=== PATIENT | female | born 1985 | race Two or more races ===

== ENCOUNTER 2020-12-02 15:58 | Emergency (ER) | payer OTHER ==
[~2020-12-02] VITALS: Ht 154.9 cm; Wt 81.6 kg
[2020-12-02 16:37] LABS: Basophils # (auto) 0.1 10 ^3/uL (0-0.2); Basophils % (auto) 1.8 % (0.0-2.0); Eosinophils # (auto) 0 10 ^3/uL (0-0.8); Eosinophils % (auto) 0.8 % (0.0-7.0); Lymphocytes # (auto) 0.9 10 ^3/uL (0.4-5.4); Monocytes # (auto) 0.6 10 ^3/uL (0-1.3); Red Cell Distribution Width 18.4 % (11.8-14.3)
[2020-12-02 16:39] LABS: Hematocrit 24.2 % (36.0-46.0); Hemoglobin 7.2 g/dL (12.2-16.2); Mean Corpuscular Hemoglobin 18.9 pg (28.0-32.0); Mean Corpuscular Hgb Conc. 29.9 g/dL (32.0-36.0); Mean Corpuscular Volume 63.2 fL (80.0-100.0); Monocytes % (auto) 11.5 % (0.0-12.0); Neutrophils # (auto) 3.6 10 ^3/uL (1.6-8.6); Neutrophils % (auto) 68.9 % (37.0-80.0); Nucleated Red Blood Cells % 0.3 %; Platelet Count (auto) 462 10^3/uL (140-450); Red Blood Cells 3.83 10^6/uL (4.0-5.20); White Blood Cell 5.2 10^3/uL (4.4-10.8)
[2020-12-02 16:56] VITALS: BP 97/63
[2020-12-02 17:01] LABS: Albumin 3.6 g/dL (3.4-5.0); Anion Gap 7 (5-15); Blood Urea Nitrogen 9 mg/dL (7-18); Calcium 8.1 mg/dL (8.5-10.1); Carbon Dioxide 23 mmol/L (21-32); Chloride 108 mmol/L (98-107); Glucose 93 mg/dL (74-106); Potassium 3.4 mmol/L (3.5-5.1); Sodium 138 mmol/L (136-145)
[2020-12-02 17:08] LABS: Alanine Aminotransferase 34 U/L (13-56); Alkaline Phosphatase 60 U/L (45-117); Aspartate Aminotransferase 21 U/L (15-37); BUN/Creatinine Ratio 12.3; Bilirubin, Total 0.3 mg/dL (0.2-1.0); GFR African American 117 mL/min; GFR Non-African American 97 mL/min; Total Protein 8.1 g/dL (6.4-8.2)
[2020-12-02] MEDS ORDERED: POTASSIUM EFFERVESENT TAB 25 MEQ PO ONE (17:45)
[2020-12-02] MEDS ORDERED: medroxyPROGESTERone ACETATE 5 MG TAB PO ONE (17:45)
[2020-12-02] MEDS ORDERED: FERROUS SULFATE 325mg EC TAB PO ONE (17:45)
== END 2020-12-02 17:30 | disposition home or self-care (01) ==
LOC: ER 15:58
DX: R07.89 Other chest pain (principal); D64.9 Anemia, unspecified; E87.6 Hypokalemia; Z88.0 Allergy status to penicillin
CPT/HCPCS: 36415; 80053; 81002; 81025; 84443; 84484; 85025; 93005

== ENCOUNTER 2021-01-05 09:35 | Inpatient (IN) | payer OTHER ==
[2021-01-05] VITALS (7 sets, daily range): BP systolic 97–120; BP diastolic 45–72
[~2021-01-05] VITALS: Ht 154.9 cm; Wt 83.0 kg
[2021-01-05 10:16] LABS: Basophils # (auto) 0 10 ^3/uL (0-0.2); Eosinophils # (auto) 0 10 ^3/uL (0-0.8); Eosinophils % (auto) 0.2 % (0.0-7.0); Lymphocytes # (auto) 1.1 10 ^3/uL (0.4-5.4); Monocytes # (auto) 0.6 10 ^3/uL (0-1.3)
[2021-01-05 10:18] LABS: Basophils % (auto) 0.8 % (0.0-2.0); Hematocrit 17.4 % (36.0-46.0); Lymphocytes % (auto) 19.5 % (10.0-50.0); Mean Corpuscular Hemoglobin 18.4 pg (28.0-32.0); Mean Corpuscular Hgb Conc. 30.1 g/dL (32.0-36.0); Mean Corpuscular Volume 61.2 fL (80.0-100.0); Monocytes % (auto) 10.5 % (0.0-12.0); Neutrophils # (auto) 3.8 10 ^3/uL (1.6-8.6); Nucleated Red Blood Cells % 0.5 %; Red Blood Cells 2.85 10^6/uL (4.0-5.20); Red Cell Distribution Width 17.8 % (11.8-14.3); White Blood Cell 5.5 10^3/uL (4.4-10.8)
[2021-01-05 10:24] LABS: Hemoglobin 5.2 g/dL (12.2-16.2)
[2021-01-05 10:37] LABS: Potassium 3.7 mmol/L (3.5-5.1)
[2021-01-05 10:44] LABS: Calcium 8.3 mg/dL (8.5-10.1)
[2021-01-05 11:42] LABS: Urine Bacteria NONE SEEN /hpf (None Seen); Urine Blood 1+ /uL (Negative); Urine Mucus MODERATE (None Seen); Urine Specific Gravity 1.025 (1.001-1.035); Urine WBC 35 /hpf (0 - 5)
[2021-01-05] MEDS ORDERED: cefTRIAXone 1GM/50ML D5W 50 ML IV ONE (15:15)
[2021-01-05] MEDS ORDERED: ONDANSETRON HCL 4 MG/2 ML VIAL IV PRN (16:00)
[2021-01-05] MEDS ORDERED: ACETAMINOPHEN 500 MG TAB PO PRN (16:00)
[2021-01-05] MEDS ORDERED: MORPHINE SULF INJ 2 MG/ML SYRINGE 1ML IV PRN ×2 (16:00)
[2021-01-05] MEDS ORDERED: HYDROcodone-ACET 5/325MG TAB PO PRN (16:00)
[2021-01-05] MEDS ORDERED: NITROGLYCERIN 0.4 MG SL TAB SL PRN (16:00)
[2021-01-05 23:13] LABS: Hematocrit 21.2 % (36.0-46.0)
[2021-01-05 23:17] LABS: Hemoglobin 6.4 g/dL (12.2-16.2)
[2021-01-05] MEDS ORDERED: TOCI20IN SC (23:42)
[2021-01-06] VITALS (10 sets, daily range): BP systolic 96–120; BP diastolic 61–79
[2021-01-06 06:39] LABS: Basophils # (auto) 0 10 ^3/uL (0-0.2); Basophils % (auto) 0.8 % (0.0-2.0); Eosinophils # (auto) 0.1 10 ^3/uL (0-0.8); Eosinophils % (auto) 1.8 % (0.0-7.0); Hematocrit 24.3 % (36.0-46.0); Hemoglobin 7.8 g/dL (12.2-16.2); Lymphocytes # (auto) 1.3 10 ^3/uL (0.4-5.4); Lymphocytes % (auto) 23.7 % (10.0-50.0); Mean Corpuscular Hemoglobin 22.5 pg (28.0-32.0); Mean Corpuscular Volume 70.5 fL (80.0-100.0); Monocytes # (auto) 0.6 10 ^3/uL (0-1.3); Monocytes % (auto) 10.4 % (0.0-12.0); Neutrophils # (auto) 3.5 10 ^3/uL (1.6-8.6); Neutrophils % (auto) 63.3 % (37.0-80.0); Nucleated Red Blood Cells % 1.2 %; Red Blood Cells 3.45 10^6/uL (4.0-5.20); Red Cell Distribution Width 25.9 % (11.8-14.3); White Blood Cell 5.6 10^3/uL (4.4-10.8)
[2021-01-06] MEDS: levoFLOXacin 500MG 100 ML IV SCH (08:35)
[2021-01-06] MEDS ORDERED: FERROUS SULFATE 325mg EC TAB PO ONE (11:15)
[2021-01-06] MEDS: FERROUS SULFATE 325mg EC TAB PO SCH (18:17)
[2021-01-07 05:00] VITALS: BP 103/66
[2021-01-07 05:33] LABS: Eosinophils # (auto) 0.1 10 ^3/uL (0-0.8); Hemoglobin 8.4 g/dL (12.2-16.2); Lymphocytes # (auto) 1.2 10 ^3/uL (0.4-5.4); Mean Corpuscular Hemoglobin 23.1 pg (28.0-32.0); Mean Corpuscular Hgb Conc. 32.4 g/dL (32.0-36.0); Monocytes # (auto) 0.5 10 ^3/uL (0-1.3); Neutrophils # (auto) 2.6 10 ^3/uL (1.6-8.6); Red Blood Cells 3.64 10^6/uL (4.0-5.20); White Blood Cell 4.5 10^3/uL (4.4-10.8)
[2021-01-07 05:36] LABS: Basophils # (auto) 0 10 ^3/uL (0-0.2); Eosinophils % (auto) 3.2 % (0.0-7.0); Lymphocytes % (auto) 26.5 % (10.0-50.0); Mean Corpuscular Volume 71.5 fL (80.0-100.0); Monocytes % (auto) 11.1 % (0.0-12.0); Neutrophils % (auto) 58.2 % (37.0-80.0); Nucleated Red Blood Cells % 0.6 %
[2021-01-07 05:50] LABS: INR 0.93 (0.9-1.15); Partial Thromboplastin Time 22.2 sec (23.0-31.2)
[2021-01-07 06:10] LABS: Red Cell Distribution Width 25.8 % (11.8-14.3)
[2021-01-07] MEDS: FERROUS SULFATE 325mg EC TAB PO SCH (08:26)
[2021-01-07] MEDS: levoFLOXacin 500MG 100 ML IV SCH (08:26)
[2021-01-07 09:00] VITALS: BP 98/62
== END 2021-01-07 11:53 | disposition home or self-care (01) | DRG 532 ==
LOC: ER 09:35 → OVERFLOW 15:53 → EAST 21:08
PROVIDERS: ADMIT Nurse Practitioner Acute Care; ATTEND Internal Medicine
PROC: 30233N1 Transfusion of Nonautologous Red Blood Cells into Peripheral Vein, Percutaneous Approach (ICD-10-PCS; principal; 2021-01-05)
DX: D25.9 Leiomyoma of uterus, unspecified (principal); U07.1 COVID-19; D26.0 Other benign neoplasm of cervix uteri; N39.0 Urinary tract infection, site not specified; N92.0 Excessive and frequent menstruation with regular cycle; E66.9 Obesity, unspecified; M06.9 Rheumatoid arthritis, unspecified; D50.0 Iron deficiency anemia secondary to blood loss (chronic); Z88.0 Allergy status to penicillin; Z68.34 Body mass index [BMI] 34.0-34.9, adult
CPT/HCPCS: 36415; 76830; 76856; 80048; 81001; 85014; 85018; 85025; 85610; 85730; 86850; 86900; 86901; 86920; 87086; 87426; 96365; G0378; J0696; J1956; J2405